=== PATIENT | female | born 2000 | race Hispanic/Latino ===

== ENCOUNTER 2019-09-02 08:38 | Outpatient (CLI) | payer OTHER ==
--- NOTE | 2019-09-02 09:40 | ULT ---
EXAM: Obstetrical ultrasound greater than 14 weeks: HISTORY: Anatomy COMPARISON: None. FINDINGS: Single viable intrauterine fetus is noted in breech presentation. heart rate equals 142 bpm. Placenta is anterior. Cervical length is normal. Amniotic fluid is Within normal limits. anatomy: Visualized brain, 4 chamber heart, chest, three-vessel cord, cord insert, stomach, bladder, kid neys, spine, and extremity regions are unremarkable. Limited evaluation of the four-chamber heart, spine, and lips and nose biometry: BPD: 4.2 cm Head circumference: 16.2 cm Abdominal circumference: 13.5 cm Femur length:2.8 cm IMPRESSION: Gestational age by ultrasound: 19 weeks 0 days HERMELINDO by ultrasound: 01/27/2020 Estimated weight: 258 g
== END 2019-09-02 08:39 | disposition home or self-care (01) ==
LOC: BICULT 08:38
PROVIDERS: ATTEND Family Medicine
DX: O09.892 Supervision of other high risk pregnancies, second trimester (principal); Z3A.14 14 weeks gestation of pregnancy
CPT/HCPCS: 76805

== ENCOUNTER 2019-10-06 23:20 | Day surgery (SDC) | payer OTHER ==
[2019-10-06 23:57] VITALS: BP 123/67; TEMP 98.4
[2019-10-07 00:05] VITALS: BMI 42.5
[2019-10-07] MEDS ORDERED: hydrALAZINE 20 MG/ML VIAL SLOW IVP PRN (00:54)
[2019-10-07 01:08] LABS: Bacteria/HPF 1+ HPF (None Seen); Bilirubin Negative (Negative); Blood, Urine Negative (Negative); Clarity Clear (Clear); Glucose, Urine (Dipstick) Normal (Negative); Leukocyte Negative Leu/uL (Negative); Mucous/LPF 1+ LPF (<2+); Nitrite Negative (Negative); Protein, Urine (Dipstick) 20 mg/dL (Neg-Trace); RBC/HPF 0-3 HPF (0-3); Squamous Epithelial 0-3 HPF (0-3); Urobilinogen Normal mg/dL (Less than 2); WBC/HPF 0-3 HPF (0-3)
--- NOTE | 2019-10-07 07:15 | HP ---
PRIMARY OB: Dr. Catracho Ibarra. CHIEF COMPLAINT: Spotting and right-sided abdominal pain. HISTORY OF PRESENT ILLNESS: The patient is a 19-year-old, G1, P0 female with an intrauterine at 24 weeks and 2 days, who is presenting tonight with a 1-day history of some spotting and some right-sided abdominal pain that began yesterday. The patient reports this pain is worse with activity and movement and makes it difficult for her to get out of bed. This spotting is what gave her most of her reason for wanting to come in. She denies any previous problems with bleeding and reports that she only noticed the bleeding when she wiped. She denies urinary urgency or frequency. She denies any uterine contractions or other change in discharge. She denies fever, fall, cough, headache, chest pain, shortness of breath, nausea, vomiting, diarrhea, constipation, hip problems, knee problems, or muscle weakness. Denies new rashes. Denies urinary urgency, frequency, or change in discharge, and reports the spotting per HPI. PAST MEDICAL HISTORY: Obesity. PAST SURGICAL HISTORY: Negative. ALLERGIES: NO KNOWN DRUG ALLERGIES. MEDICATIONS: vitamins. SOCIAL HISTORY: Denies drug, alcohol, or tobacco use. OB LABS: Unavailable at time of dictation. REVIEW OF SYSTEMS: Per HPI. PHYSICAL EXAMINATION: VITAL SIGNS: Blood pressure is 123/67, heart rate of 91, respiratory rate 18, and temperature 98.4. GENERAL: She appears to be in no acute distress. She is alert, oriented, cooperative, and pleasant to interact with. HEENT: Head is normocephalic and atraumatic. LUNGS: Clear to auscultation bilaterally. HEART: Has a regular rate and rhythm. ABDOMEN: Gravid, soft. She has no upper abdominal tenderness. She has some right-sided tenderness with deviation of the uterus to the left, but very mild. She has some mild suprapubic tenderness. EXTREMITIES: Nontender and nonedematous. : Vulva is without masses, lesions, or erythema. Vagina is moist. She has a bit of adhesive discharge, white in nature. No evidence of bleeding. No lacerations visible. Cervical digital exam; cervix is closed and thick, firm. No evidence of labor and fetus is ballotable. DIAGNOSTIC DATA: heart tracing shows a baseline in the 140s with moderate long-term variability, appropriate for a 24 week gestation. LABORATORY DATA: Urinalysis shows a clear urine with a pH of 6.5, specific gravity of 1.026, 20 of protein, negative ketones, negative nitrites, negative leukocyte esterase, negative white blood cells with 1+ bacteria, and squamous cells are 0 to 3. ASSESSMENT AND PLAN: The patient is a 19-year-old primip with an intrauterine at 24 weeks, experiencing musculoskeletal pain of and bacteriuria. I have provided a prescription for Macrobid to be taken. I have given her precautions for signs or symptoms of pyelonephritis with instructions to return should she experience worsening pain or infection. The patient has been given reassurance, has been given Macrobid 100 mg to be taken twice a day for the next 7 days. The patient to follow up with her primary OB, Dr. Ibarra, as scheduled. Job ID: [id number]
== END 2019-10-07 01:30 | disposition home health service (06) ==
LOC: L&D/OP 23:20
PROVIDERS: ATTEND Family Medicine
DX: O99.89 Other specified diseases and conditions complicating pregnancy, childbirth and the puerperium (principal); R82.71 Bacteriuria; O26.852 Spotting complicating pregnancy, second trimester; Z3A.24 24 weeks gestation of pregnancy
CPT/HCPCS: 36415; 81001; 87480; 87510; 87660; 99285

== ENCOUNTER 2020-01-30 18:30 | Inpatient (IN) | payer OTHER ==
[~2020-01-30 18:30] MED LIST: Bupivacaine 0.25% HCL 30 ML VIAL ONE
[2020-01-30 19:11] VITALS: BMI 51.3
[2020-01-30] MEDS ORDERED: hydrALAZINE 20 MG/ML VIAL SLOW IVP PRN ×2 (19:53→21:12)
--- NOTE | 2020-01-30 19:54 | PDOC.FPROB ---
FMR OB H&P: HPI - History of Present Illness Chief Complaint: decreased FM Indentification: 19 yo at 40.5 wga by LMP c/w 7.2 wk sono History of Present Illness: Patient presents for decreased FM since yesterday. Started last night before she went to sleep and has not gotten better all day with food and water. Denies contractions, VD, VD, LOF. Denies GUERRERO, vision changes, RUQ pain. Primary Care Physician: Fred [facility] OB H&P: Current - Care : 1 Para: 0 Gestational age: 40.5 Due date: 01/25/2020 Dating Criteria: LMP c/w 7.2 wk sono Course/Complications: None. - OB Labs Blood type: O RH: positive Antibody Screen: negative HIV: negative RPR: negative HepBsAg: negative Rubella: immune Quad screen: negative Urine drug screen: positive (marijuana) Gonorrhea: negative Chlamydia: negative 1 hour gtt: 121 GBS: positive H&H: 13.1/40.0 FMR OB H&P: History - Past Medical History PMH: Denies - OB History OB History: none - LOCOMOTIVE FIRER History LOCOMOTIVE FIRER History: Denies STIs - Surgical History Sx History: Denies. - Social History Social History: Denies smoking, drinking, drugs. - Family History Family History: Denies. [facility]MR OB H&P: Medications - Current Home Medications: Medication Instructions Recorded Confirmed Type [id number]/Iron Fum/Folic/Docusate 1 tab PO DAILY 10/06/19 10/06/19 History [ 19] Allergies/Adverse Reactions: Allergies Allergy/AdvReac Type Severity Reaction Status Date / Time No Known Allergies Allergy Verified 01/30/20 19:10 [facility]MR OB H&P: ROS - Review of Systems General: denies: fever/chills, fatigue Eyes: denies: vision changes, scotomas, floaters ENT: denies: nasal congestion, sore throat Cardiovascular: denies: chest pain Respiratory: denies: cough, shortness of breath Gastrointestinal: denies: abdominal pain, nausea, vomiting, diarrhea Genitourinary (Female): denies: dysuria, vaginal discharge, vaginal pain, vaginal bleeding, contractions, vaginal pressure Neurologic: denies: weakness Integumentary: denies: itching, rash Hematologic/Lymphatic: denies: prolonged or excessive bleeding Psychological: denies: depression, anxiety [facility]MR OB H&P: Vital Signs - Maternal Vital signs: Vital Signs - First Documented Temp Pulse Resp BP 98.8 F 78 18 138/86 01/30/20 19:09 01/30/20 19:09 01/30/20 19:09 01/30/20 19:09 - Heart Tones Baseline: 140 (reactive) Variability: moderate Acceleration: present Deceleration: absent [place] contractions every: none [facility]MR OB H&P: Physical Exam - Physical Exam General: NAD, awake, alert and oriented HEENT: normocephalic and atraumatic, grossly normal vision, grossly normal hearing Neck: supple, trachea midline Heart: RRR, normal S1/S2, no murmurs/rubs/gallops General: CTAB, no respiratory distress Abdomen: soft, gravid, non-tender Musculoskeletal: normal gait and station, pulses present Neurological: DTR +1, no clonus, no focal deficit Skin: no rash (flea bites on feet and legs bilaterally) Lymphatic: no unusual bruising or bleeding Psychiatric: intact recent and remote memory, normal mood and affect - Pelvic Exam Vulva: no discharge Guerrero score: closed/thick/-3, posterior, moderately firm Membranes: intact Presentation: cephalic, confirmed by bedside sono. Estimated Weight: 7 lbs FMR OB H&P: Results - Imaging Imaging: bedside sono also revealed scalloped placenta and little fluid (not measured). FMR OB H&P: A/P - Problem List (1) Decreased movement Current Visit: Yes Status: Acute Code(s): O36.8190 - DECREASED MOVEMENTS, UNSP TRIMESTER, UNSP (2) Elevated blood pressure affecting in third trimester, antepartum Current Visit: Yes Status: Acute Code(s): O16.3 - UNSPECIFIED MATERNAL HYPERTENSION, THIRD TRIMESTER Disposition: admit to L&D for induction. Discussion: Date/Time: 01/30/201953 19 yo at 40.5 being admitted for Elevated BPs in third trimester -in setting of post-dates, little fluid on bedside sono, cephalic presentation, we will admit for induction of labor -cervix closed and thick. Will start cytotec. -monitor BPs, treat if severe and start magnesium as indicated. -patient is asymptomatic, will get admission labs along with uric acid, LDH and urine protein/creatinine. Decreased FM, resolved - pt feeling more FM since arriving - NST reactive This H&P was discussed with Dr. Saba, who agrees with the above documentation and plan. Signature: Tanya Kohli. PGY2
[2020-01-30 21:03] LABS: #Eosinphils 0.1 thou/uL (0.0-0.7); #Lymphocytes 1.8 thou/uL (1.20-3.40); #Monocytes 0.5 thou/uL (0.11-0.59); #Neutrophils 6.2 thou/uL (1.40-6.50); %Basophils 0.4 % (0.0-1.0); %Lymphocytes 20.6 % (28.0-48.0); %Monocytes 5.7 % (0.0-4.0); %Neutrophils 72.4 % (31.0-61.0); Hemoglobin 10.4 g/dL (12.0-16.0); Mean Corpuscular HGB CONC 32.8 g/dL (32.0-36.0); Mean Corpuscular Hemoglobin 24.8 pg (25.0-35.0); Mean Corpuscular Volume 75.7 fL (78.0-98.0); Mean Platelet Volume 12.5 fL (7.4-10.4); Platelet Count 227 thou/uL (130-400); RBC Distribution Width 16.1 % (11.5-14.5); Red Blood Cell (RBC) Count 4.18 mill/uL (4.00-5.20); White Blood Cell (WBC) Count 8.5 thou/uL (4.8-10.8)
[2020-01-30 21:08] LABS: ALT (SGPT) 17 U/L (8-55); AST (SGOT) 20 U/L (5-34); Albumin 3.2 g/dL (3.5-5.0); Alkaline Phosphatase 376 U/L (40-100); Anion Gap 10 mmol/L (10-20); BUN (Urea Nitrogen) 11 mg/dL (7.0-18.7); Bilirubin, Total 0.2 mg/dL (0.2-1.2); Calc. Creatinine Clearance 236 mL/min (70-130); Calcium 9.1 mg/dL (7.8-10.44); Carbon Dioxide 23 mmol/L (22-29); Chloride 107 mmol/L (98-107); Estimated GFR-MDRD Greater than 90; Globulin 3.3 g/dL (2.4-3.5); Glucose 86 mg/dL (70-105); Potassium 4.4 mmol/L (3.5-5.1); Protein, Total 6.5 g/dL (6.0-8.3); Sodium 136 mmol/L (136-145); Uric Acid 6.3 mg/dL (2.6-6.0)
[2020-01-30] MEDS ORDERED: Ondansetron PF 4 MG/2 ML Vial IVP PRN (21:12)
[2020-01-30] MEDS ORDERED: Ibuprofen 800 MG TAB PO PRN (21:12)
[2020-01-30] MEDS ORDERED: HYDROcodone/Acetaminophen 5/325 mg Tablet PO PRN (21:12)
[2020-01-30] MEDS ORDERED: NS / Oxytocin 40 units/1000ml 1,000 ML IV PRN (21:12)
[2020-01-30] MEDS ORDERED: Lidocaine 1% (PF) 30 ML VIAL SC PRN (21:12)
[2020-01-30] MEDS ORDERED: Lactated Ringer's 1,000 ML IV SCH (21:15)
[2020-01-30] MEDS ORDERED: Penicillin G Potassium 5 MILL.UNITS in Sodium Chloride 0.9% 100 ML IVPB SCH (21:15)
[2020-01-30 21:31] LABS: Large Platelets SLIGHT; Microcytosis SLIGHT = 6-15 cells (100X) (0-5/hpf)
[2020-01-30 21:54] LABS: Creatinine, Urine 238.08 mg/dL (47-110)
[2020-01-30 22:09] LABS: Mean Corpuscular HGB CONC 33.4 g/dL (32.0-36.0); Mean Corpuscular Hemoglobin 25.4 pg (25.0-35.0); Mean Corpuscular Volume 75.8 fL (78.0-98.0); Mean Platelet Volume 12.2 fL (7.4-10.4); Platelet Count 218 thou/uL (130-400); RBC Distribution Width 16.4 % (11.5-14.5); Red Blood Cell (RBC) Count 3.96 mill/uL (4.00-5.20)
[2020-01-30] MEDS: Misoprostol 100 MCG TAB VAG SCH (22:28)
[2020-01-30 22:54] LABS: Syphilis Antibody Nonreactive (Nonreactive); Syphilis Antibody Index 0.02 S/CO (<1.00 Non-Reactive)
[2020-01-31 01:12] LABS: HBSAg Index 0.11 S/CO (0-0.99); Hep B Surf Ag Non-Reactive S/CO (NonReactive)
[2020-01-31] MEDS: Misoprostol 100 MCG TAB VAG SCH ×3 (02:02→15:33)
[2020-01-31] MEDS: Lactated Ringer's 1,000 ML IV SCH ×3 (02:38→20:52)
[2020-01-31] MEDS: Penicillin G 2.5 MILL.units 2.5 MILL.UNITS in Premix Bag 1 BAG IVPB SCH ×2 (02:38→23:35)
[2020-01-31] MEDS ORDERED: Magnesium Sulfate 20 gm/500 ml 20 GM/500 ML BAG ONE (08:20)
[2020-01-31] MEDS: Butorphanol Tartrate 1 MG/ML VIAL SLOW IVP PRN ×2 (10:31→13:54)
[2020-01-31] MEDS ORDERED: Calcium Gluc 4.6 MEQ/10 ML (100 MG/ML) SLOW IVP PRN (12:12)
[2020-01-31] MEDS ORDERED: Magnesium Sulfate 20 GM/WATER 500 ML BAG IVPB SCH (12:15)
[2020-01-31] MEDS: Magnesium Sulfate 20 gm/500 ml 20 GM/500 ML BAG IVPB SCH (17:17)
[2020-01-31] MEDS ORDERED: Calcium Carbonate 500 MG ChewTAB PO PRN (17:57)
[2020-01-31] MEDS ORDERED: Labetalol HCl 100 MG/20 ML VIAL SLOW IVP PRN (22:53)
[2020-01-31] MEDS ORDERED: hydrALAZINE 20 MG/ML VIAL SLOW IVP PRN (22:54)
[2020-01-31] MEDS: Acetaminophen 500 MG TAB PO PRN (22:58)
[2020-01-31] MEDS ORDERED: hydrALAZINE 20 MG/ML VIAL SLOW IVP SCH (23:00)
[2020-02-01] MEDS: NS w/ Oxytocin 10 units 500 ML IVPB SCH ×2 (02:12→15:48)
[2020-02-01] MEDS: Penicillin G 2.5 MILL.units 2.5 MILL.UNITS in Premix Bag 1 BAG IVPB SCH ×2 (03:30→13:41)
[2020-02-01] MEDS: Acetaminophen 500 MG TAB PO PRN (05:05)
[2020-02-01] MEDS ORDERED: Fentanyl 4 mcg/Bup 0.1% Cadd 100 ML ONE ×2 (07:20→14:59)
[2020-02-01] MEDS ORDERED: diphenhydrAMINE 50 MG/ML VIAL IVP PRN (07:42)
[2020-02-01] MEDS ORDERED: Promethazine HCl 25 MG/ML VIAL IM PRN (07:42)
[2020-02-01] MEDS ORDERED: Naloxone HCl 0.4 mg/ml Vial IVP PRN ×2 (07:42)
[2020-02-01] MEDS ORDERED: EPHEDRINE 25 MG/5 ML SYRINGE SLOW IVP PRN (07:42)
[2020-02-01] MEDS ORDERED: Lactated Ringer's 500 ML IV PRN (07:42)
[2020-02-01] MEDS ORDERED: Ondansetron PF 4 MG/2 ML Vial IVP PRN ×2 (07:42→21:42)
[2020-02-01] MEDS ORDERED: Acetaminophen 325 MG TAB PO PRN (07:42)
[2020-02-01] MEDS ORDERED: Fentanyl 4 mcg/Bupivacaine 0.1% Cassette 100 ML EPIDURAL SCH (07:45)
[2020-02-01] MEDS ORDERED: Communication Order-Pharmacy FS SCH (07:45)
[2020-02-01] MEDS: Lactated Ringer's 1,000 ML IV SCH (08:20)
[2020-02-01] MEDS: Misoprostol 100 MCG TAB VAG SCH ×2 (08:28→13:41)
[2020-02-01] MEDS: Magnesium Sulfate 20 gm/500 ml 20 GM/500 ML BAG IVPB SCH ×2 (13:15→22:45)
[2020-02-01] MEDS ORDERED: Carboprost 250 MCG/ML AMP ONE (16:51)
[2020-02-01] MEDS ORDERED: Lidocaine 1% (PF) 30 ML VIAL ONE (16:53)
[2020-02-01] MEDS ORDERED: Misoprostol 200 MCG TAB ONE (16:53)
[2020-02-01] MEDS ORDERED: NS / Oxytocin 40 units/1000ml 1,000 ML ONE (16:53)
[2020-02-01] MEDS ORDERED: diphenhydrAMINE 25 MG CAP PO PRN (21:42)
[2020-02-01] MEDS ORDERED: NS / Oxytocin 40 units/1000ml 1,000 ML IV SCH (21:42)
[2020-02-01] MEDS ORDERED: Bisacodyl 10 MG SUPP PR PRN (21:42)
[2020-02-01] MEDS ORDERED: Milk Of Magnesia 30 ML UDCUP PO PRN (21:42)
[2020-02-01] MEDS ORDERED: Lanolin Ointment 7 GM TUBE TOP PRN (21:42)
[2020-02-01] MEDS ORDERED: Benzocaine-Menthol 82.5 ML CAN TOP PRN (21:42)
[2020-02-01] MEDS ORDERED: HYDROcodone/Acetaminophen 5/325 mg Tablet PO PRN ×2 (21:42)
[2020-02-01] MEDS ORDERED: Ibuprofen 800 MG TAB PO SCH (22:30)
[2020-02-01] MEDS ORDERED: Docusate Calcium (SURFAK) 240 MG CAP PO SCH (22:30)
[2020-02-02] MEDS ORDERED: hydrALAZINE 20 MG/ML VIAL ONE (04:34)
[2020-02-02] MEDS: hydrALAZINE 20 MG/ML VIAL SLOW IVP SCH ×2 (04:37→10:53)
[2020-02-02] MEDS: Ibuprofen 800 MG TAB PO SCH ×3 (06:08→22:35)
[2020-02-02 06:35] LABS: Hemoglobin 10.1 g/dL (12.0-16.0); Mean Corpuscular HGB CONC 32.9 g/dL (32.0-36.0); Mean Corpuscular Hemoglobin 25.2 pg (25.0-35.0); Mean Corpuscular Volume 76.6 fL (78.0-98.0); Mean Platelet Volume 11.5 fL (7.4-10.4); Platelet Count 205 thou/uL (130-400); Red Blood Cell (RBC) Count 4.01 mill/uL (4.00-5.20); White Blood Cell (WBC) Count 14.6 thou/uL (4.8-10.8)
[2020-02-02] MEDS: Acetaminophen 500 MG TAB PO PRN (07:59)
[2020-02-02] MEDS ORDERED: Adacel (T-DAP) 0.5 ML SYRINGE IM ONE (09:00)
[2020-02-02] MEDS: Ferrous Sulfate 325 MG TAB PO SCH ×2 (10:54→18:17)
[2020-02-02] MEDS: Docusate Calcium (SURFAK) 240 MG CAP PO SCH ×2 (10:54→22:35)
[2020-02-02] MEDS: Prenatal Vitamin 1 TAB PO SCH (10:55)
[2020-02-02] MEDS ORDERED: hydrALAZINE 20 MG/ML VIAL SLOW IVP PRN (17:52)
[2020-02-02] MEDS: Misoprostol 100 MCG TAB VAG SCH ×4 (19:21→19:25)
[2020-02-02] MEDS: Penicillin G 2.5 MILL.units 2.5 MILL.UNITS in Premix Bag 1 BAG IVPB SCH ×2 (19:22→19:23)
[2020-02-02] MEDS: Lactated Ringer's 1,000 ML IV SCH (19:24)
[2020-02-03] MEDS: Ibuprofen 800 MG TAB PO SCH (06:35)
[2020-02-03] MEDS: Docusate Calcium (SURFAK) 240 MG CAP PO SCH (08:31)
[2020-02-03] MEDS: Prenatal Vitamin 1 TAB PO SCH (08:31)
[2020-02-03] MEDS: cloNIDine 0.1 MG TAB PO PRN ×2 (08:31→09:53)
[2020-02-03] MEDS: Ferrous Sulfate 325 MG TAB PO SCH (08:32)
[2020-02-03 12:03] VITALS: BP 137/80; TEMP 97
== END 2020-02-03 14:45 | disposition home or self-care (01) | DRG 807 ==
LOC: L&D/OP 18:30 → L&D 21:45 → 3SW 02-02 18:03
PROVIDERS: ADMIT Family Medicine; ATTEND Family Medicine
PROC: 10E0XZZ Delivery of Products of Conception, External Approach (ICD-10-PCS; principal; 2020-01-30)
DX: O76 Abnormality in fetal heart rate and rhythm complicating labor and delivery (principal); Z37.0 Single live birth; Z3A.40 40 weeks gestation of pregnancy
CPT/HCPCS: 36415; 80053; 82570; 83615; 83735; 84156; 84550; 85025; 85027; 86780; 86850; 86900; 86901; 87340; J0360; J0595; J2001; J2405; J2540; J2590; J3475; J3490; S0020

== ENCOUNTER 2022-01-13 22:55 | Emergency (ER) | payer OTHER ==
[2022-01-14] MEDS ORDERED: Lidocaine 1% PF 5 ML VIAL ONE ×2 (01:15→02:04)
== END 2022-01-14 02:56 | disposition home or self-care (01) ==
LOC: ERS 22:55
DX: O99.712 Diseases of the skin and subcutaneous tissue complicating pregnancy, second trimester (principal); L60.0 Ingrowing nail; Z3A.16 16 weeks gestation of pregnancy
CPT/HCPCS: 99283

== ENCOUNTER 2022-02-14 10:27 | Outpatient (CLI) | payer OTHER | END 2022-02-14 10:28 | disposition home or self-care (01) | LOC: BICULT 10:27 | PROVIDERS: ATTEND Family Medicine | DX: O09.892 Supervision of other high risk pregnancies, second trimester (principal); Z3A.21 21 weeks gestation of pregnancy | CPT/HCPCS: 76805 ==

== ENCOUNTER 2022-09-25 14:51 | Emergency (ER) | payer OTHER | END 2022-09-25 18:26 | disposition home or self-care (01) | LOC: ERS 14:51 | DX: J02.9 Acute pharyngitis, unspecified (principal); D64.9 Anemia, unspecified | CPT/HCPCS: 87081; 87430; 99283 ==

== ENCOUNTER 2023-05-06 19:14 | Emergency (ER) | payer OTHER ==
[2023-05-06] MEDS ORDERED: Ketorolac Tromethamine 30 MG/ML VIAL ONE (20:36)
== END 2023-05-06 21:08 | disposition home or self-care (01) ==
LOC: ERS 19:14
DX: S92.421A Displaced fracture of distal phalanx of right great toe, initial encounter for closed fracture (principal); B35.1 Tinea unguium; W20.8XXA Other cause of strike by thrown, projected or falling object, initial encounter
CPT/HCPCS: 96372; J1885

== ENCOUNTER 2024-01-28 18:55 | Emergency (ER) | payer OTHER, SELFPAY | END 2024-01-28 19:44 | disposition home or self-care (01) | LOC: ERS 18:55 | DX: B34.9 Viral infection, unspecified (principal) | CPT/HCPCS: 99282 ==

== ENCOUNTER 2024-05-14 09:28 | Emergency (ER) | payer SELFPAY ==
[2024-05-14] MEDS ORDERED: Ketorolac Tromethamine 30 MG (1 mL) VIAL ONE (10:37)
== END 2024-05-14 10:42 | disposition home or self-care (01) ==
LOC: ERS 09:28
DX: K08.89 Other specified disorders of teeth and supporting structures (principal)
CPT/HCPCS: 96372; 99282; J1885

== ENCOUNTER 2025-02-10 23:07 | Emergency (ER) | payer SELFPAY ==
[2025-02-11] MEDS ORDERED: Ibuprofen 800 MG TAB ONE (02:04)
== END 2025-02-11 03:00 | disposition home or self-care (01) ==
LOC: ERS 23:07
DX: M26.621 Arthralgia of right temporomandibular joint (principal)
CPT/HCPCS: 99283